=== PATIENT | male | born 1990 | race Caucasian/White ===

== ENCOUNTER 2019-03-16 10:28 | Inpatient (IN) ==
[2019-03-16] MEDS ORDERED: DICYCLOMINE 20 MG/2 ML AMP IM ONE (11:00)
[2019-03-16] MEDS ORDERED: SODIUM CHLORIDE 0.9% 1,000 ML IV STA (11:00)
[2019-03-16] MEDS ORDERED: PANTOPRAZOLE 40 MG VIAL IV STA (11:00)
[2019-03-16] MEDS ORDERED: ONDANSETRON 4 MG/2 ML VIAL IV STA (11:00)
[2019-03-16] MEDS ORDERED: METOCLOPRAMIDE 10 MG/2 ML VIAL IV STA (11:00)
[2019-03-16 11:28] LABS: Basophils # 0.1 10*3/uL (0.0-0.2); Basophils % 0.7 % (0.0-0.8); Eosinophils % 0.3 % (0.00-10.9); Hemoglobin 10.5 GM/DL (14.0-18.0); Immature Granulocytes % 0.1 %; Immature Granulocytes Absolute 0.01 #; Lymphocytes # 8.3 10*3/uL (1.4-4.0); Lymphocytes % 77.6 % (21.2-54.2); Mean Corpuscular HGB Conc 33.9 GM/DL (32-36); Mean Corpuscular Volume 93.4 FL (87-102); Monocytes % 3.7 % (1.7-12.7); Neutrophils % 17.6 % (38.7-73.9); Platelet Count 154 T/CUMM (130-400); Red Blood Count 3.32 MC/CUMM (3.8-5.5); Red Cell Distribution Width 12.9 % (9.3-17.3); White Blood Count 10.7 T/CUMM (4-12)
[2019-03-16 11:42] LABS: Apearance,Urine CLEAR (Clear); Bilirubin,Urine Negative (Negative); Blood, Urine Negative (Negative); Glucose,Urine (UA) Negative (Negative); Ketones,Urine Negative (Negative); Mucus,Urine Moderate /LPF (Occasional); Nitrite,Urine Negative (Negative); Protein,Urine 30 MG/DL; RBC,Urine 2 /HPF (0-4); Squamous Epithelial Cell,Urine Occasional /HPF (0-10); Urine Color Amber (Yellow); Urine Specific Gravity 1.029 (1.001-1.035); WBC,Urine 5 /HPF (0-6)
[2019-03-16 11:45] LABS: Alanine Aminotransferase 216 U/L (16-61); Albumin 3.6 G/DL (3.4-5.0); Alkaline Phosphatase 99 U/L (45-117); Amylase 27 U/L (25-115); Aspartate Amino Transferase 184 U/L (0-37); Blood Urea Nitrogen 20 MG/DL (7-18); Calcium 8.3 MG/DL (8.5-10.1); Estimated Glom Filtration Rate 147 ML/MIN; Glucose 120 MG/DL (74-106); Osmolality,Calculated 278.7 MOS/KG (273-304); Total Protein 6.8 G/DL (6.4-8.3)
[2019-03-16 11:46] LABS: Troponin I < 0.015 NG/ML (0.00-0.045)
[2019-03-16 11:54] LABS: Lymphocytes 79 % (20-55); Segmented Neutrophils 18 % (50-85); Total Cells Counted 100
[2019-03-16 11:55] LABS: Atypical Lymphocytes 2+; Platelet Estimate Normal
[2019-03-16] MEDS ORDERED: ceFAZolin 1,000 MG in SYRINGE 1 EACH IV ONE (12:08)
[2019-03-16] MEDS ORDERED: ceFAZolin 1,000 MG VIAL ONE (12:49)
[2019-03-16 13:51] LABS: Apearance,Urine CLEAR (Clear); Bilirubin,Urine Negative (Negative); Blood, Urine Negative (Negative); Glucose,Urine (UA) Negative (Negative); Ketones,Urine Negative (Negative); Mucus,Urine Many /LPF (Occasional); Nitrite,Urine Negative (Negative); Protein,Urine 30 MG/DL; RBC,Urine 3 /HPF (0-4); Squamous Epithelial Cell,Urine Occasional /HPF (0-10); Urine Specific Gravity 1.044 (1.001-1.035); WBC,Urine 4 /HPF (0-6)
[2019-03-16 13:53] LABS: Urine Color Dark yellow (Yellow)
[2019-03-16] MEDS ORDERED: HYDROmorphone 2 MG/1 ML VIAL ONE (13:54)
[2019-03-16] MEDS ORDERED: ONDANSETRON 4 MG/2 ML VIAL ONE (13:54)
[2019-03-16] MEDS: HYDROmorphone 2 MG/1 ML VIAL IV PRN ×6 (13:55→17:40)
[2019-03-16] MEDS ORDERED: ONDANSETRON 4 MG/2 ML VIAL IV PRN ×2 (13:58→14:07)
[2019-03-16] MEDS ORDERED: PROMETHAZINE 25 MG/1 ML VIAL IM PRN (14:07)
[2019-03-16] MEDS ORDERED: fentaNYL 100 MCG/2 ML VIAL ONE (14:07)
[2019-03-16] MEDS ORDERED: LIDOCAINE 2% 5 ML VIAL ONE (14:07)
[2019-03-16] MEDS ORDERED: MIDAZOLAM 2 MG/2 ML VIAL ONE (14:07)
[2019-03-16] MEDS ORDERED: SEVOFLURANE 1 UNIT/15 MINUTE INH ONE (14:07)
[2019-03-16] MEDS ORDERED: ROCURONIUM 100 MG/10 ML VIAL IV ONE (14:08)
[2019-03-16] MEDS ORDERED: SODIUM CHLORIDE 0.9% 3,000 ML IV ONE (14:08)
[2019-03-16] MEDS ORDERED: ETOMIDATE 40 MG/20 ML VIAL IV ONE (14:08)
[2019-03-16] MEDS ORDERED: GLYCOPYRROLATE 0.4 MG/2 ML VIAL ONE (14:08)
[2019-03-16] MEDS ORDERED: SUCCINYLCHOLINE 200 MG/10 ML VIAL ONE (14:08)
[2019-03-16] MEDS ORDERED: NEOSTIGMINE 10 MG/10 ML VIAL ONE (14:08)
[2019-03-16] MEDS ORDERED: PHENYLEPHRINE 1 MG/10 ML SYRINGE IV ONE (14:08)
[2019-03-16 14:35] LABS: Basophils # 0.1 10*3/uL (0.0-0.2); Basophils % 0.6 % (0.0-0.8); Eosinophils % 0.2 % (0.00-10.9); Hematocrit 23.9 VOL% (42.0-52.0); Immature Granulocytes % 0.8 %; Immature Granulocytes Absolute 0.13 #; Lymphocytes % 76.3 % (21.2-54.2); Mean Corpuscular HGB Conc 33.5 GM/DL (32-36); Mean Corpuscular Volume 94.8 FL (87-102); Monocytes % 2.3 % (1.7-12.7); Neutrophils % 19.8 % (38.7-73.9); Platelet Count 136 T/CUMM (130-400); Red Blood Count 2.52 MC/CUMM (3.8-5.5)
[2019-03-16 14:45] LABS: INR 1.3; PT Patient Result 13.8 SECS (9.6-12.2); Partial Thromboplastin Time 28.4 SECS (20.8-36.0)
[2019-03-16] MEDS ORDERED: INFLUENZA VIRUS VACCINE 0.5 ML SYRINGE IM ONE (14:53)
[2019-03-16] MEDS: LACTATED RINGERS 1,000 ML IV SCH ×2 (15:05→22:50)
[2019-03-16] MEDS: KETOROLAC 15 MG/1 ML VIAL IV SCH ×2 (15:12→19:44)
[2019-03-16 15:18] LABS: Calcium 7.3 MG/DL (8.5-10.1); Osmolality,Calculated 289.8 MOS/KG (273-304)
[2019-03-16 16:13] LABS: Band Neutrophils 1 % (0-10); Lymphocytes 53 % (20-55); Metamyelocytes 1 %; Segmented Neutrophils 43 % (50-85); Total Cells Counted 100
[2019-03-16 16:14] LABS: Anisocytosis 1+; Macrocytosis Slight; Platelet Estimate Adequate; Polychromasia Few; Reactive Lymphocytes 3+
[2019-03-16 22:09] LABS: Hematocrit 24.7 VOL% (42.0-52.0)
[2019-03-17] MEDS: HYDROmorphone 2 MG/1 ML VIAL IV PRN ×2 (01:14→06:33)
[2019-03-17] MEDS: KETOROLAC 15 MG/1 ML VIAL IV SCH ×4 (02:14→20:25)
[2019-03-17 04:11] LABS: Basophils # 0.1 10*3/uL (0.0-0.2); Basophils % 0.5 % (0.0-0.8); Eosinophils # 0.1 10*3/uL (0.0-0.87); Eosinophils % 0.5 % (0.00-10.9); Hemoglobin 7.6 GM/DL (14.0-18.0); Immature Granulocytes % 0.3 %; Immature Granulocytes Absolute 0.04 #; Lymphocytes # 8.2 10*3/uL (1.4-4.0); Lymphocytes % 56.3 % (21.2-54.2); Mean Corpuscular Volume 93.1 FL (87-102); Mean Platelet Volume 10.4 FL (9.6-12.0); Monocytes % 5.2 % (1.7-12.7); Neutrophils % 37.2 % (38.7-73.9); Platelet Count 173 T/CUMM (130-400); Red Blood Count 2.47 MC/CUMM (3.8-5.5); Red Cell Distribution Width 13.1 % (9.3-17.3); White Blood Count 14.5 T/CUMM (4-12)
[2019-03-17 04:17] LABS: INR 1.2; PT Patient Result 12.8 SECS (9.6-12.2); Partial Thromboplastin Time 30.8 SECS (20.8-36.0)
[2019-03-17 04:30] LABS: Calcium 7.9 MG/DL (8.5-10.1); Osmolality,Calculated 279.3 MOS/KG (273-304)
[2019-03-17 04:35] LABS: Lymphocytes 45 % (20-55); Platelet Estimate Adequate; Segmented Neutrophils 50 % (50-85); Total Cells Counted 100
[2019-03-17 04:36] LABS: Hypochromasia 1+
[2019-03-17] MEDS: LACTATED RINGERS 1,000 ML IV SCH (06:35)
[2019-03-17] MEDS: ENOXAPARIN 40 MG/0.4 ML SYRINGE SUBCUT SCH (08:37)
[2019-03-18] MEDS: KETOROLAC 15 MG/1 ML VIAL IV SCH ×3 (02:12→14:07)
[2019-03-18 05:50] LABS: Basophils # 0.1 10*3/uL (0.0-0.2); Basophils % 0.3 % (0.0-0.8); Eosinophils % 0.1 % (0.00-10.9); Hematocrit 24.7 VOL% (42.0-52.0); Hemoglobin 8.4 GM/DL (14.0-18.0); Immature Granulocytes % 0.5 %; Immature Granulocytes Absolute 0.11 #; Lymphocytes # 7.1 10*3/uL (1.4-4.0); Lymphocytes % 34.8 % (21.2-54.2); Mean Corpuscular Volume 91.5 FL (87-102); Mean Platelet Volume 10.4 FL (9.6-12.0); Monocytes % 3.8 % (1.7-12.7); Neutrophils % 60.5 % (38.7-73.9); Platelet Count 277 T/CUMM (130-400); Red Cell Distribution Width 12.9 % (9.3-17.3); White Blood Count 20.3 T/CUMM (4-12)
[2019-03-18 06:20] LABS: Band Neutrophils 2 % (0-10); Lymphocytes 24 % (20-55); Platelet Estimate Adequate; Segmented Neutrophils 67 % (50-85); Total Cells Counted 100
[2019-03-18 06:21] LABS: Hypochromasia 1+; Ovalocytes Slight
[2019-03-18] MEDS: ENOXAPARIN 40 MG/0.4 ML SYRINGE SUBCUT SCH (08:19)
[2019-03-18] MEDS: HYDROmorphone 2 MG/1 ML VIAL IV PRN (09:35)
[2019-03-18] MEDS ORDERED: MENINGOCOCCAL VACCINE 0.5 ML VIAL SUBCUT ONE (09:56)
[2019-03-18] MEDS ORDERED: HAEMOPHILUS B CONJ VACCINE 0.5 ML/10 MCG VIAL IM ONE (09:56)
[2019-03-18] MEDS ORDERED: PNEUMOCOCCAL VACCINE (13 VALENT) 0.5 ML SYRINGE IM ONE (09:56)
[2019-03-18 11:43] VITALS: BP 109/54
== END 2019-03-18 14:45 | disposition home or self-care (01) | DRG 264 ==
LOC: N.ED 10:28 → N.EDINP 12:15 → N.ICU 12:25 → N.3E 03-17 10:07
PROVIDERS: ADMIT Surgery; ATTEND Surgery